=== PATIENT | female | born 1955 | race Two or more races ===

== ENCOUNTER 2020-04-21 20:26 | Inpatient (IN) | payer MEDICARE, OTHER ==
[~2020-04-21] VITALS: Ht 157.5 cm; Wt 122.4 kg
[2020-04-21] MEDS ORDERED: PLEASE ENTER ALLERGIES MC SCH (21:00)
[2020-04-21] MEDS ORDERED: PLEASE ENTER HEIGHT AND WEIGHT MC SCH (21:00)
[2020-04-21] MEDS ORDERED: SODIUM CHLORIDE FLUSH 10ML SYR IVF ONE ×2 (21:00)
[2020-04-21 21:22] LABS: BASOPHILS % (AUTO) 0 % (0-1); EOSINOPHILS % (AUTO) 0 % (1-7); LYMPHOCYTES % (AUTO) 13 % (22-44); MEAN CORPUSCULAR HEMOGLOBIN 30.3 pg (27.0-34.8); MEAN CORPUSCULAR HGB CONC 33.3 g/dL (32.4-35.8); MEAN PLATELET VOLUME 7.6 fL (7.4-10.4); MONOCYTES % (AUTO) 1 % (2-9); NEUTROPHILS % (AUTO) 86 % (42-75); PLATELET COUNT 312 x10^3/uL (130-400); RED CELL DISTRIBUTION WIDTH 14.3 % (9.6-15.2)
[2020-04-21 21:24] LABS: MD NO
[2020-04-21] MEDS ORDERED: HEPARIN 5,000 UNITS/ML, 1ML IV ONE (21:30)
[2020-04-21] MEDS ORDERED: OXYcodone/APAP 5/325MG TABLET PO PRN (21:30)
[2020-04-21] MEDS ORDERED: ONDANSETRON 2MG/ML, 2ML IVPush PRN (21:30)
[2020-04-21] MEDS: HEPARIN 25,000 UNITS/250ML PMX 250 ML IV SCH (21:30)
[2020-04-21 21:31] LABS: ALBUMIN 2.6 g/dL (3.4-5.0); ANION GAP 5 mmol/L (5-15); CALCIUM 8.3 mg/dL (8.5-10.1); CHLORIDE 109 mmol/L (98-107); CREATININE 0.58 mg/dL (0.55-1.02)
[2020-04-21 21:33] LABS: INTERNATIONAL NORMALIZED RATIO 1.02 (0.93-1.1); PROTHROMBIN TIME 10.8 Seconds (9.6-11.5)
[2020-04-21] MEDS ORDERED: TRAM50TA2 PO (21:48)
[2020-04-21] MEDS ORDERED: SUCR1ORA14 PO (21:48)
[2020-04-21] MEDS ORDERED: PANT40GR PO (21:48)
[2020-04-21] MEDS ORDERED: FILG480D2 SC (21:52)
[2020-04-21] MEDS ORDERED: CITA10TA8 PO (21:52)
[2020-04-21] MEDS ORDERED: NYST15PO9 TP (21:52)
[2020-04-21] MEDS ORDERED: ONDA4TAB7 PO (21:52)
[2020-04-21] MEDS ORDERED: TIZA4CAP PO (21:54)
[2020-04-21] MEDS ORDERED: HEPARIN 5,000 UNITS/ML, 1ML ONE (23:02)
[2020-04-21] MEDS ORDERED: HEPARIN 25,000 UNITS/250ML PMX 250 ML ONE (23:03)
[2020-04-21 23:39] VITALS: BP 133/82
[2020-04-22] MEDS ORDERED: NYSTATIN TOPICAL POWDER 15GM TP PRN (00:30)
[2020-04-22] MEDS ORDERED: ONDANSETRON 4 MG TABLET PO PRN ×2 (00:30→19:00)
[2020-04-22] MEDS ORDERED: SUCRALFATE 1 GM/10 ML UDC PO PRN (00:30)
[2020-04-22 07:28] VITALS: BP 112/62
[2020-04-22 08:28] LABS: BASOPHILS % (AUTO) 0 % (0-1); EOSINOPHILS % (AUTO) 0 % (1-7); LYMPHOCYTES % (AUTO) 18 % (22-44); MEAN CORPUSCULAR HGB CONC 33.6 g/dL (32.4-35.8); MONOCYTES % (AUTO) 2 % (2-9); NEUTROPHILS % (AUTO) 81 % (42-75); PLATELET COUNT 302 x10^3/uL (130-400); RED BLOOD COUNT 3.55 x10^6/uL (3.82-5.3); RED CELL DISTRIBUTION WIDTH 14.4 % (9.6-15.2)
[2020-04-22 08:30] LABS: ANION GAP 6 mmol/L (5-15); CALCIUM 8.2 mg/dL (8.5-10.1); CHLORIDE 108 mmol/L (98-107); CREATININE 0.43 mg/dL (0.55-1.02)
[2020-04-22] MEDS: CITALOPRAM 10 MG TABLET PO SCH (08:36)
[2020-04-22] MEDS: PANTOPRAZOLE GRAN. PKT 40 MG PO SCH ×2 (08:36→16:20)
[2020-04-22 08:45] LABS: MD SCAN
[2020-04-22 13:25] VITALS: BP 121/75
[2020-04-22] MEDS: OXYcodone/APAP 7.5/325MG TABLET PO PRN (16:22)
[2020-04-22] MEDS: HEPARIN 25,000 UNITS/250ML PMX 250 ML IV SCH (17:29)
[2020-04-22] MEDS ORDERED: RIVAROXABAN 15 MG TABLET ONE (18:22)
[2020-04-22] MEDS: RIVAROXABAN 15 MG TABLET PO SCH (18:23)
[2020-04-22 18:48] VITALS: BP 104/69
[2020-04-23 01:22] VITALS: BP 104/70
[2020-04-23 04:15] LABS: BASOPHILS % (AUTO) 0 % (0-1); EOSINOPHILS % (AUTO) 0 % (1-7); LYMPHOCYTES % (AUTO) 28 % (22-44); MEAN CORPUSCULAR HEMOGLOBIN 30.4 pg (27.0-34.8); MEAN CORPUSCULAR HGB CONC 33.6 g/dL (32.4-35.8); MONOCYTES % (AUTO) 5 % (2-9); NEUTROPHILS % (AUTO) 67 % (42-75); PLATELET COUNT 330 x10^3/uL (130-400); RED BLOOD COUNT 3.66 x10^6/uL (3.82-5.3); RED CELL DISTRIBUTION WIDTH 14.2 % (9.6-15.2)
[2020-04-23 04:20] LABS: MD NO
[2020-04-23 07:41] VITALS: BP 111/73
[2020-04-23] MEDS ORDERED: PEGFILGRASTIM JMDB 6 MG/0.6 ML SQ ONE (08:00)
[2020-04-23] MEDS: CITALOPRAM 10 MG TABLET PO SCH (09:12)
[2020-04-23] MEDS: PANTOPRAZOLE GRAN. PKT 40 MG PO SCH (09:13)
[2020-04-23] MEDS: RIVAROXABAN 15 MG TABLET PO SCH ×2 (09:13→16:25)
[2020-04-23 13:11] VITALS: BP 107/72
[2020-04-23] MEDS ORDERED: WARF2.5T32 PO (15:28)
[2020-04-23] MEDS ORDERED: coumadin (15:28)
[2020-04-23] MEDS: OXYcodone/APAP 7.5/325MG TABLET PO PRN (16:26)
[2020-05-14] MEDS ORDERED: RIVAROXABAN 20 MG TABLET PO SCH (17:00)
== END 2020-04-23 16:33 | disposition home or self-care (01) | DRG 315 ==
LOC: ED 20:55 → EDIP 21:04 → ED 21:31 → 4NW 23:22
PROVIDERS: ADMIT Specialist; ATTEND Specialist
DX: T82.868A Thrombosis due to vascular prosthetic devices, implants and grafts, initial encounter (principal); I82.621 Acute embolism and thrombosis of deep veins of right upper extremity; I82.A11 Acute embolism and thrombosis of right axillary vein; Z68.42 Body mass index [BMI] 45.0-49.9, adult; C54.1 Malignant neoplasm of endometrium; E66.01 Morbid (severe) obesity due to excess calories; G89.29 Other chronic pain; M54.9 Dorsalgia, unspecified; K21.9 Gastro-esophageal reflux disease without esophagitis; F32.9 Major depressive disorder, single episode, unspecified; M19.90 Unspecified osteoarthritis, unspecified site; Y84.8 Other medical procedures as the cause of abnormal reaction of the patient, or of later complication, without mention of misadventure at the time of the procedure; Z85.43 Personal history of malignant neoplasm of ovary; Z85.42 Personal history of malignant neoplasm of other parts of uterus; Z87.442 Personal history of urinary calculi; Z90.710 Acquired absence of both cervix and uterus; Z87.891 Personal history of nicotine dependence
CPT/HCPCS: 36415; 80048; 82040; 85025; 85610; 85730; 99285; G0378; J1644

== ENCOUNTER → 2020-04-21 | Outpatient (CLI) | payer MEDICARE, OTHER ==
[~2020-04-21] MED LIST: CITA10TA8 PO; FILG480D2 SC; NYST15PO9 TP; ONDA4TAB7 PO; PANT40GR PO; SUCR1ORA14 PO; TIZA4CAP PO; TRAM50TA2 PO
== END | disposition home or self-care (01) ==
LOC: RAD 17:47
PROVIDERS: ATTEND Obstetrics & Gynecology
DX: Z51.11 Encounter for antineoplastic chemotherapy (principal); C54.1 Malignant neoplasm of endometrium; I82.890 Acute embolism and thrombosis of other specified veins; D70.1 Agranulocytosis secondary to cancer chemotherapy; B35.6 Tinea cruris; T82.598A Other mechanical complication of other cardiac and vascular devices and implants, initial encounter; G89.18 Other acute postprocedural pain; I82.621 Acute embolism and thrombosis of deep veins of right upper extremity; Y83.8 Other surgical procedures as the cause of abnormal reaction of the patient, or of later complication, without mention of misadventure at the time of the procedure; Y92.89 Other specified places as the place of occurrence of the external cause